=== PATIENT | female | born 1995 | race Caucasian/White ===

== ENCOUNTER → 2018-11-19 | Outpatient (CLI) | payer OTHER ==
--- NOTE | 2018-11-19 13:48 | WOMENS IMAGING REPORT ---
EXAM DESCRIPTION: U/S BREAST UNILAT LIMITED COMPLETED DATE/TIME: 11/19/2018 10:21 am REASON FOR STUDY: N63.20 UNSPECIFIED LUMP IN THE LEFT BREAST, UNSPECIFIED QUADRANT N63.20 UNSPECIFI ED LUMP IN THE LEFT BREAST, UNSPECIFIED QUAD COMPARISON: None. TECHNIQUE: Real-time and static grayscale imaging performed of the left breast targeted to the area of clinical concern. Selected color Doppler images recorded. LIMITATIONS: None. FINDINGS: MASS: Well-circumscribed hypoechoic solid mass with good acoustic through transmission, mi nimal internal color flow. This is 2.3 x 2 x 1.4 cm in size, and most likely represents a benign fib roadenoma. Close clinical follow-up is recommended. OTHER: No other significant finding. IMPRESSION: Palpable abnormality left breast correlates with a probable fibroadenoma. Clinical foll ow-up recommended. If this grows or changes, repeat imaging recommended. BIRAD: 2 Benign findings. RECOMMENDATION: RECOMMENDED FOLLOW-UP: Follow-up as clinically indicated. COMMENT: The [employer] ([employer]) has developed recommendations for screening MRI of the breasts in certain patient populations, to be used in conjunction with mammography. Breast MRI s urveillance may be appropriate for women with more than 20% lifetime risk of developing breast cancer as determined by genetic testing, significant family history of the disease, or history of mantle r adiation for Hodgkins Disease. [employer] Practice Guidelines 2008. TECHNICAL DOCUMENTATION: JOB ID: [id number] [employer]- All Rights Reserved Reading location - IP/workstation name: [email or web address]
== END ==
LOC: WI 08:58
PROVIDERS: ATTEND Physician Assistant
DX: N63.20 Unspecified lump in the left breast, unspecified quadrant (principal)
CPT/HCPCS: 76642

== ENCOUNTER 2018-12-29 09:23 | Day surgery (SDC) | payer OTHER ==
[2018-12-22 09:35] LABS: HEMATOCRIT 41.6 % (36.0-47.0); HEMOGLOBIN 14.4 g/dL (12.0-15.5); MEAN CORPUSCULAR HEMOGLOBIN 30.5 pg (27.0-33.4); MEAN CORPUSCULAR HGB CONC 34.6 g/dL (32.0-36.0); MEAN CORPUSCULAR VOLUME 88 fl (80-97); PLATELET COUNT 239 10^3/uL (150-450); RED BLOOD COUNT 4.71 10^6/uL (3.72-5.28); RED CELL DISTRIBUTION WIDTH 12.7 % (11.5-14.0); WHITE BLOOD COUNT 7.4 10^3/uL (4.0-10.5)
[~2018-12-29 09:23] MED LIST: CEFAZOLIN SODIUM 1 GM in DEXTROSE 5%-WATER 50 ML IV PRN; LACTATED RINGERS 1000 ML IV PRN; LIDOCAINE 0.5% INJ-PF (5 MG/ML) 50 ML SDV SUBCUT PRN
[2018-12-29] MEDS ORDERED: PROPOFOL INJ 200 MG/20 ML VIAL IV ONE ×2 (09:56→12:10)
[2018-12-29] MEDS ORDERED: FENTANYL CITRATE INJ/PF 100 MCG/2 ML AMPUL ONE (09:56)
[2018-12-29] MEDS ORDERED: MIDAZOLAM 2 MG/2 ML INJ ONE (09:56)
[2018-12-29] MEDS ORDERED: PROMETHAZINE HCL INJ 25 MG/1 ML VIAL IV PRN (10:44)
[2018-12-29] MEDS ORDERED: OXYCODONE-ACETAMINOPHEN 5-325 MG TABLET PO PRN ×3 (10:44→12:30)
[2018-12-29] MEDS ORDERED: ONDANSETRON HCL INJ/PF 4 MG/2 ML SDV IV PRN (10:44)
[2018-12-29] MEDS ORDERED: FENTANYL CITRATE INJ/PF 100 MCG/2 ML AMPUL IV PRN ×3 (10:44)
[2018-12-29] MEDS ORDERED: MEPERIDINE HCL/PF INJ 25 MG/1 ML DISP.SYRIN IV PRN (10:44)
[2018-12-29] MEDS ORDERED: MORPHINE SULFATE 10 MG/ML INJ IV PRN (10:44)
[2018-12-29] MEDS ORDERED: DIPHENHYDRAMINE HCL 50 MG/ML VIAL IV PRN (10:44)
[2018-12-29] MEDS ORDERED: DEXAMETHASONE SOD PHOSPHATE INJ 4 MG/1 ML VIAL ONE (11:14)
[2018-12-29] MEDS ORDERED: KETOROLAC TROMETHAMINE 60 MG/2 ML SDV ONE (11:14)
[2018-12-29] MEDS ORDERED: ONDANSETRON HCL INJ/PF 4 MG/2 ML SDV ONE (11:14)
[2018-12-29] MEDS ORDERED: LIDOCAINE 1%/EPINEPHRINE INJ 20 ML VIAL ONE (11:21)
[2018-12-29] MEDS ORDERED: LIDOCAINE 1%/EPINEPHRINE INJ 20 ML VIAL INJ ONE (11:34)
--- NOTE | 2018-12-29 12:30 | Discharge Summary ---
Discharge Summary (SDC) - Discharge Final Diagnosis: Left breast mass Date of Surgery: 12/29/18 Discharge Date: 12/29/18 Condition: Good Treatment or Instructions: WOUND CARE: 1) You may shower in 24 hours. Leave skin glue intact. Warm water and soap may wash over wound, do not scrub, pat dry. You may cover the wound with gauze and tape if it is more comfortable. 2) Wear supportive bra. PAIN MANAGEMENT: 1) You may take Toradol 10mg one pill by mouth every six hours as needed for pain. Do not take additional NSAIDs with Toradol. You may take Tylenol. FOLLOW UP: 1) You may follow up at [facility] in 7-[address] Leone. Monitor the wound for signs of infection: redness, swelling, fever. Prescriptions: Ketorolac Tromethamine [Toradol 10 mg Tablet] 10 mg PO Q6HP PRN #20 tablet PRN Reason: Referrals: EYAL MINOR MD [Primary Care Provider] - Discharge Diet: As Tolerated Discharge Activity: Activity As Tolerated Report the Following to Your Physician Immediately: Increase in Pain, Fever over 101 Degrees, Unusual Bleeding, Redness, Swelling, Warmth, Drainage-Foul Smelling
--- NOTE | 2018-12-29 12:32 | Operative Report ---
Operative Report DATE OF SURGERY: 12/29/18 PREOPERATIVE DIAGNOSIS: Fibroadenoma left breast POSTOPERATIVE DIAGNOSIS: Same OPERATION: Ultrasound directed excisional open biopsy left breast mass SURGEON: JENARO NAZARIO 1ST STATEMENT CLERK: SANOFRD STOCKTON ANESTHESIA: LMAC TISSUE REMOVED OR ALTERED: Left breast mass COMPLICATIONS: None ESTIMATED BLOOD LOSS: Scant INTRAOPERATIVE FINDINGS: See below PROCEDURE: Patient was seen in preop holding where the left breast was marked. The patient was then taken to the main operating room where LMAC anesthesia was induced. Left arm was abducted, left breast prepped and draped in sterile fashion Surgical plan surgical timeout were conducted. The skin at the left areolar border was Yelena x1% plain lidocaine. Approximately 2 and half centimeter incision was made with a #10 blade. Dermis was divided as well. Using real-time ultrasound as a guide, a very small lumpectomy was performed incorporating the superficial breast tissue, and the target mass which is approximately 2 and half centimeter well-circumscribed den sity consistent with a fibroadenoma. A 2-0 Vicryl suture was placed in the substance of the mass, and used as a retracting tool. The mass was removed in its entirety from the left breast. It was bivalved and then sent to pathology. Hemostasis was checked and it was excellent. Wound closed with 3-0 Vicryl, then Dermabond glue. Patient tolerated procedure well, taken recovery in stable condition. The physician research lab assistant, Ms. Holliday, provided assistance during this case by: Assisting with retracting tissue, instillation of local anesthesia and closure of skin incisions.
[2018-12-29 13:23] VITALS: BP 121/82
== END 2018-12-29 13:10 | disposition home or self-care (01) ==
LOC: OROUT 09:23
PROVIDERS: ATTEND Surgery
DX: D24.2 Benign neoplasm of left breast (principal)
CPT/HCPCS: 36415; 85027; 81025; 88305 ×2; 19120; J2250; J0690; J1100; J1885; J3010; J3490; J2405; J7060; J2704; 400